=== PATIENT | female | born 1975 | race Caucasian/White ===

== ENCOUNTER 2017-01-25 11:42 | Emergency (ER) | payer OTHER ==
[2017-01-25] MEDS ORDERED: SODIUM CHLORIDE 0.9% 1,000 ML IV STA (12:14)
[2017-01-25 12:39] LABS: Anisocytosis Moderate; Basophils % (A) 0 %; CH 27.1; Eosinophils % (A) 0 %; HCT 44.7 % (34.0-46.0); HDW 2.58; HGB 13.8 gm/dL (11.4-16.0); Luc # (Auto) 0.11; Luc % (Auto) 1; Lymphocytes # (A) 1.5 k/uL (1.0-4.8); Lymphocytes % (A) 16 %; MCH 26.2 pg (25.0-35.0); MCHC 30.8 g/dL (31.0-37.0); Mean Platelet Volume 7.5; Monocytes # (A) 0.5 k/uL (0-1.0); Monocytes % (A) 5 %; Neutrophils # (A) 7.4 k/uL (1.3-7.7); Neutrophils % (A) 77 %; RBC 5.26 m/uL (3.80-5.40); RDW 20.5 % (11.5-15.5); WBC 9.5 k/uL (3.8-10.6); WBC (Perox) 9.78
[2017-01-25 12:51] LABS: ALT 26 U/L (9-52); AST 16 U/L (14-36); Alkaline Phosphatase 60 U/L (38-126); Amylase 57 U/L (30-110); Anion Gap 12 mmol/L; Blood Urea Nitrogen 9 mg/dL (7-17); Carbon Dioxide 26 mmol/L (22-30); Chloride 104 mmol/L (98-107); Glucose 85 mg/dL (74-99); Non-African American GFR(MDRD) >60 (>60 ml/min/1.73 sqM); Potassium 4.1 mmol/L (3.5-5.1); Sodium 142 mmol/L (137-145); Total Bilirubin 0.8 mg/dL (0.2-1.3); Total Protein 7.7 g/dL (6.3-8.2)
[2017-01-25 12:52] LABS: Appearance,Urine Cloudy (Clear); Bacteria,Urine Many /hpf; Bilirubin,Urine Negative (Negative); Glucose,Urine (UA) Negative (Negative); Ketones,Urine Negative (Negative); Leukocyte Esterase,Urine Large (Negative); Mucus,Urine Rare /hpf; Nitrite,Urine Positive (Negative); Particle Count 11025; Protein,Urine Trace (Negative); RBC,Urine 2 /hpf (0-5); Specific Gravity,Urine 1.006 (1.001-1.035); Squamous Epithelial Cell,Urine 1 /hpf (0-4); UA Billing (MACRO vs. MICRO) MICRO; Urobilinogen,Urine <2.0 mg/dL (<2.0); WBC,Urine 58 /hpf (0-5)
--- NOTE | 2017-01-25 13:10 | CT ---
EXAMINATION TYPE: CT abdomen pelvis wo con DATE OF EXAM: 01/25/2017 COMPARISON: Previous study dated 11/23/2012 HISTORY: Bilateral flank pain. CT DLP: 302.00 mGycm Automated exposure control for dose reduction was used. FINDINGS: Visualized portions of the lungs are clear. There is no pleural or pericardial fluid. The h eart is not enlarged. Within the abdomen, the liver, spleen and gallbladder are normal. Both adrenal glands are normal. There is no evidence of hydronephrosis or nephrolithiasis. Limited views of the pancreas are normal. There is no significant retroperitoneal, iliac or inguinal adenopathy. The bladder is unremarkable. Both ovaries are normal. There is no significant diverticular change and there is no radiographic evidence of diverticulitis. The appendix is normal. There is mucosal thickening involving the transverse colon. Much of the descending colon is collapsed making it difficult to assess colonic thickening. No free fluid and no free air is seen. There is mild hypertrophic spondylosis in the upper lumbar spine. No bony destructive lesion is seen. IMPRESSION: 1. THICKENING OF THE TRANSVERSE COLON AND PROBABLY THE DESCENDING COLON. PLEASE CORRELATE FOR COLITIS . 2. NORMAL APPENDIX. 3. NO EVIDENCE OF HYDRONEPHROSIS OR NEPHROLITHIASIS. 4. MILD DEGENERATIVE CHANGE WITHIN THE SPINE.
[2017-01-25] MEDS ORDERED: cefTRIAXone 2,000 MG in SODIUM CHLORIDE 0.9% 100 ML IVPB STA (13:11)
[2017-01-25] MEDS ORDERED: ONDANSETRON 4 MG/2 ML VIAL IVP STA (13:15)
[2017-01-25] MEDS ORDERED: HYDROmorphone 1 MG/ML 1 ML SYRINGE IVP STA (13:15)
--- NOTE | 2017-01-25 13:17 | ED ---
General Adult HPI - General Chief complaint: Abdominal Pain Stated complaint: BACK PAIN, POSS KIDNEY STONE Time Seen by Provider: 01/25/17 12:14 Source: patient, RN notes reviewed Mode of arrival: ambulatory Limitations: no limitations - History of Present Illness Initial comments: 41-year-old female presents emergency Department chief complaint of left flank pain with some nausea. Patient denies any high fevers. Patient does admit to history of kidney stones but states this feels different. Patient states the pain. The back of the chair can cause her some discomfort. Patient states that she was concerned due to her pain and discomfort so she thought that she should be evaluated. Patient denies any high fevers. Patient denies any blood in the urine that she is aware of. Patient was concerned due to her symptoms. Patient denies any recent fever, chills, shortness of breath, chest pain, vomiting, numbness or tingling, dysuria or hematuria, constipation or diarrhea, headaches or visual changes, or any other current symptoms. - Related Data Home Medications Medication Instructions Recorded Confirmed Hydrocodone/Acetaminophen 1 tab PO DIRECTED 12/09/13 12/09/13 [Hydrocodone/Acetaminophen 10-325] Previous Rx's Medication Instructions Recorded Docusate [Colace] 100 mg PO DAILY #5 capsule 12/09/13 Hydrocortisone [Anusol-Hc] 30 gm RC TID #10 cream..g. 12/09/13 Amoxicillin/Potassium Clav 1 tab PO Q12HR #20 tab 01/25/17 [Augmentin 875-125 Tablet] Allergies Allergy/AdvReac Type Severity Reaction Status Date / Time ciprofloxacin [From Cipro] AdvReac Unknown Verified 01/25/17 11:53 ciprofloxacin HCl AdvReac Unknown Verified 01/25/17 11:53 [From Cipro] doxycycline AdvReac Unknown Verified 01/25/17 11:53 ibuprofen AdvReac Unknown Verified 01/25/17 11:53 sulfamethoxazole AdvReac Unknown Verified 01/25/17 11:53 [From Septra] trimethoprim [From Septra] AdvReac Unknown Verified 01/25/17 11:53 Review of Systems ROS Statement: Those systems with pertinent positive or pertinent negative responses have been documented in the HPI. ROS Other: All systems not noted in ROS Statement are negative. Past Medical History Past Medical History: CVA/TIA Additional Past Medical History / Comment(s): kidney stones, anemia History of Any Multi-Drug Resistant Organisms: None Reported Past Surgical History: Section Additional Past Surgical History / Comment(s): D&C Past Psychological History: Anxiety Smoking Status: Never smoker Past Alcohol Use History: Rare Past Drug Use History: None Reported General Exam - General Exam Comments Initial Comments: General: The patient is awake and alert, in no distress, and does not appear acutely ill. Eye: Pupils are equal, round and reactive to light, extra-ocular movements are intact; there is normal conjunctiva bilaterally. No signs of icterus. Ears, nose, mouth and throat: There are moist mucous membranes and no oral lesions. Neck: The neck is supple, there is no tenderness or JVD. Cardiovascular: There is a regular rate and rhythm. No murmur, rub or gallop is appreciated. Respiratory: Lungs are clear to auscultation, respirations are non-labored, breath sounds are equal. No wheezes, stridor, rales, or rhonchi. Gastrointestinal: Soft, non-distended, non-tender abdomen without masses or organomegaly noted. There is no rebound or guarding present. right sided CVA tenderness. Bowel sounds are unremarkable. Back: There is no tenderness to palpation in the midline. There is no obvious deformity. No rashes noted. Musculoskeletal: Normal ROM, no tenderness, There is no pedal edema. There is no calf tenderness or swelling. Sensation intact. Pulses equal bilaterally 2+. Neurological: CN II-XII intact, There are no obvious motor or sensory deficits. Coordination appears grossly intact. Speech is normal. Skin: Skin is warm and dry and no rashes or lesions are noted. Psychiatric: Cooperative, appropriate mood & affect, normal judgment. Limitations: no limitations Course Vital Signs 01/25/17 11:51 Temperature 98.5 F Pulse Rate 90 Respiratory 20 Rate Blood Pressure 117/75 O2 Sat by Pulse 99 Oximetry Medical Decision Making - Medical Decision Making 41-year-old male presents to the emergency department with a chief complaint of what appears to be an acute pyelonephritis. This time there is no white count there is no fever patient has not vomited. This time we did give her 2g of Rocephin. We will start her on Augmentin for home. We discussed follow-up with her doctor. We did discuss return parameters all the questions. She stated that she understood and she is given plan. All questions have been answered. She will be discharged home. - Lab Data Result diagrams: 01/25/17 12:25 01/25/17 12:25 Lab Results 01/25/17 01/25/17 01/25/17 Range/Units 12:20 12:20 12:25 WBC (3.8-10.6) k/uL RBC (3.80-5.40) m/uL Hgb (11.4-16.0) gm/dL Hct (34.0-46.0) % MCV (80.0-100.0) fL MCH (25.0-35.0) pg MCHC (31.0-37.0) g/dL RDW (11.5-15.5) % Plt Count (150-450) k/uL Neutrophils % % Lymphocytes % % Monocytes % % Eosinophils % % Basophils % % Neutrophils # (1.3-7.7) k/uL Lymphocytes # (1.0-4.8) k/uL Monocytes # (0-1.0) k/uL Eosinophils # (0-0.7) k/uL Basophils # (0-0.2) k/uL Anisocytosis Sodium 142 (137-145) mmol/L Potassium 4.1 (3.5-5.1) mmol/L Chloride 104 (98-107) mmol/L Carbon Dioxide 26 (22-30) mmol/L Anion Gap 12 mmol/L BUN 9 (7-17) mg/dL Creatinine 0.73 (0.52-1.04) mg/dL Est GFR (MDRD) Af Amer >60 (>60 ml/min/1.73 sqM) Est GFR (MDRD) Non-Af >60 (>60 ml/min/1.73 sqM) Glucose 85 (74-99) mg/dL Calcium 10.0 (8.4-10.2) mg/dL Total Bilirubin 0.8 (0.2-1.3) mg/dL AST 16 (14-36) U/L ALT 26 (9-52) U/L Alkaline Phosphatase 60 (38-126) U/L Total Protein 7.7 (6.3-8.2) g/dL Albumin 4.6 (3.5-5.0) g/dL Amylase 57 (30-110) U/L Lipase 89 (23-300) U/L Urine Color Light Yellow Urine Appearance Cloudy H (Clear) Urine pH 6.0 (5.0-8.0) Ur Specific [place] 1.006 (1.001-1.035) Urine Protein Trace H (Negative) Urine Glucose (UA) Negative (Negative) Urine Ketones Negative (Negative) Urine Blood Small H (Negative) Urine Nitrite Positive H (Negative) Urine Bilirubin Negative (Negative) Urine Urobilinogen <2.0 (<2.0) mg/dL Ur Leukocyte Esterase Large H (Negative) Urine RBC 2 (0-5) /hpf Urine WBC 58 H (0-5) /hpf Urine WBC Clumps Many H (None) /hpf Ur Squamous Epith Cells 1 (0-4) /hpf Urine Bacteria Many H (None) /hpf Urine Mucus Rare H (None) /hpf Urine HCG, Qual Not Detected (Not Detectd) 01/25/17 Range/Units 12:25 WBC 9.5 (3.8-10.6) k/uL RBC 5.26 (3.80-5.40) m/uL Hgb 13.8 (11.4-16.0) gm/dL Hct 44.7 (34.0-46.0) % MCV 85.0 (80.0-100.0) fL MCH 26.2 (25.0-35.0) pg MCHC 30.8 L (31.0-37.0) g/dL RDW 20.5 H (11.5-15.5) % Plt Count 257 (150-450) k/uL Neutrophils % 77 % Lymphocytes % 16 % Monocytes % 5 % Eosinophils % 0 % Basophils % 0 % Neutrophils # 7.4 (1.3-7.7) k/uL Lymphocytes # 1.5 (1.0-4.8) k/uL Monocytes # 0.5 (0-1.0) k/uL Eosinophils # 0.0 (0-0.7) k/uL Basophils # 0.0 (0-0.2) k/uL Anisocytosis Moderate Sodium (137-145) mmol/L Potassium (3.5-5.1) mmol/L Chloride (98-107) mmol/L Carbon Dioxide (22-30) mmol/L Anion Gap mmol/L BUN (7-17) mg/dL Creatinine (0.52-1.04) mg/dL Est GFR (MDRD) Af Amer (>60 ml/min/1.73 sqM) Est GFR (MDRD) Non-Af (>60 ml/min/1.73 sqM) Glucose (74-99) mg/dL Calcium (8.4-10.2) mg/dL Total Bilirubin (0.2-1.3) mg/dL AST (14-36) U/L ALT (9-52) U/L Alkaline Phosphatase (38-126) U/L Total Protein (6.3-8.2) g/dL Albumin (3.5-5.0) g/dL Amylase (30-110) U/L Lipase (23-300) U/L Urine Color Urine Appearance (Clear) Urine pH (5.0-8.0) Ur Specific [place] (1.001-1.035) Urine Protein (Negative) Urine Glucose (UA) (Negative) Urine Ketones (Negative) Urine Blood (Negative) Urine Nitrite (Negative) Urine Bilirubin (Negative) Urine Urobilinogen (<2.0) mg/dL Ur Leukocyte Esterase (Negative) Urine RBC (0-5) /hpf Urine WBC (0-5) /hpf Urine WBC Clumps (None) /hpf Ur Squamous Epith Cells (0-4) /hpf Urine Bacteria (None) /hpf Urine Mucus (None) /hpf Urine HCG, Qual (Not Detectd) - Radiology Data Radiology results: report reviewed, image reviewed Disposition Clinical Impression: Acute pyelonephritis Disposition: HOME SELF-CARE Condition: Stable Instructions: Kidney Infection (ED) Additional Instructions: Please use medication as discussed. Please follow up with family doctor if symptoms have not improved over the next two days. Please return to the emergency room if your symptoms increase or worsen or for any other concerns. Prescriptions: Amoxicillin/Potassium Clav [Augmentin 875-125 Tablet] 1 tab PO Q12HR #20 tab Referrals: Toya Kay MD [Primary Care Provider] - 1-2 days Time of Disposition: 13:17
[2017-01-25 14:28] VITALS: BP 103/56; PULSE 71; RESP 18; TEMP 97.9
== END 2017-01-25 14:40 | disposition home or self-care (01) ==
LOC: EC 11:42
DX: N10 Acute pyelonephritis (principal); Z86.73 Personal history of transient ischemic attack (TIA), and cerebral infarction without residual deficits; Z79.891 Long term (current) use of opiate analgesic; Z79.899 Other long term (current) drug therapy; Z88.1 Allergy status to other antibiotic agents; Z88.2 Allergy status to sulfonamides; Z88.6 Allergy status to analgesic agent
CPT/HCPCS: 99284; 96365; 96375 ×2; 96361; 36415; 80053; 82150; 83690; 85025; 81001; 81025; 87086; 87077; 87186; 74176; J2405; J0696; J1170

== ENCOUNTER 2017-02-12 00:38 | Emergency (ER) | payer OTHER ==
[2017-02-12 00:42] VITALS: RESP 18
[2017-02-12 02:41] LABS: Anisocytosis Slight; Basophils # (A) 0.1 k/uL (0-0.2); Basophils % (A) 1 %; CH 28.6; CHCM 32.5; Eosinophils % (A) 1 %; HCT 45.3 % (34.0-46.0); HDW 2.63; Luc % (Auto) 1; Lymphocytes # (A) 2.3 k/uL (1.0-4.8); Lymphocytes % (A) 33 %; MCH 27.3 pg (25.0-35.0); Mean Platelet Volume 7.5; Monocytes # (A) 0.4 k/uL (0-1.0); Monocytes % (A) 6 %; Neutrophils % (A) 59 %; RBC 5.15 m/uL (3.80-5.40); RDW 19.5 % (11.5-15.5); WBC 6.9 k/uL (3.8-10.6); WBC (Perox) 6.96
--- NOTE | 2017-02-12 02:42 | XR ---
EXAMINATION TYPE: XR chest 2V DATE OF EXAM: 02/12/2017 COMPARISON: 11/23/2012 HISTORY: Chest pain TECHNIQUE: Frontal and lateral views of the chest are obtained. FINDINGS: Heart and mediastinum are normal. Lungs are clear of infiltrate. There is midthoracic dext roscoliosis. There is old left posterior rib fracture. IMPRESSION: No active cardiopulmonary disease. No change.
[2017-02-12 02:55] LABS: ALT 27 U/L (9-52); AST 17 U/L (14-36); Alkaline Phosphatase 60 U/L (38-126); Anion Gap 10 mmol/L; Blood Urea Nitrogen 9 mg/dL (7-17); Calcium 10.1 mg/dL (8.4-10.2); Carbon Dioxide 24 mmol/L (22-30); Chloride 107 mmol/L (98-107); Glucose 93 mg/dL (74-99); Non-African American GFR(MDRD) >60 (>60 ml/min/1.73 sqM); Potassium 4.3 mmol/L (3.5-5.1); Sodium 141 mmol/L (137-145); Total Bilirubin 0.3 mg/dL (0.2-1.3)
[2017-02-12 03:05] LABS: Creatine Kinase 38 U/L (30-135)
[2017-02-12 03:14] LABS: Prothrombin Time 10.5 sec (9.0-12.0)
[2017-02-12 03:16] LABS: Creatine Kinase MB <0.2 ng/mL (0.0-2.4); Troponin I <0.012 ng/mL (0.000-0.034)
[2017-02-12] MEDS ORDERED: RX INFO: IV CONTRAST WAS GIVEN 1 EACH MISC MISCELLANE PRN (03:30)
[2017-02-12] MEDS ORDERED: LORazepam 2 MG/ML INJ IV STA (03:33)
--- NOTE | 2017-02-12 05:17 | CT ---
EXAM: CT Angiography Chest With Intravenous Contrast CLINICAL HISTORY: Chest and left shoulder pain with elevated d-dimer TECHNIQUE: Axial computed tomographic angiography images of the chest with intravenous contrast using pulmonary embolism protocol. DLP is 241.00 mGy-cm. This CT exam was performed using one or more of the following dose reduction techniques: automated exposure control, adjustment of the mA and/or kV according to patient size, and/or use of iterative reconstruction technique. MIP reconstructed images were created and reviewed. COMPARISON: No relevant prior studies available. FINDINGS: Pulmonary arteries: Unremarkable. No pulmonary embolism. Aorta: No acute findings. No thoracic aortic aneurysm. Lungs: Unremarkable. No mass. No consolidation. Pleural space: Unremarkable. No significant effusion. No pneumothorax. Heart: Unremarkable. No cardiomegaly. No significant pericardial effusion. No evidence of RV dysfunction. Bones/joints: Chronic minimally displaced fractures involving the posterior mid left ribs. Mild dextroscoliosis of the thoracic spine. No dislocation. Soft tissues: Unremarkable. Lymph nodes: Unremarkable. No enlarged lymph nodes. IMPRESSION: No evidence of PE.
--- NOTE | 2017-02-12 05:19 | ED ---
General Adult HPI - General Chief complaint: Extremity Problem,Nontraumatic Stated complaint: Chest/Shoulder Pain Time Seen by Provider: 02/12/17 02:00 Source: patient, RN notes reviewed, old records reviewed Mode of arrival: ambulatory Limitations: no limitations - History of Present Illness Initial comments: 41-year-old female with past medical history chronic pain presents for evaluation of left anterior superior chest pain and left shoulder pain. Patient states this does radiate down her left arm. It is associated with shortness of breath. Patient denies any calf tenderness. She has had left lower extremity swelling which she was evaluated for in the past including ultrasound which was negative for DVT according to the patient. Patient has been ongoing for approximately one month. She does take [place] for pain, she states the pain would worsen proximally 1 hour after taking her [place], for this reason she has got taken any pain medication in the past 4 days. She is attempting to wean herself off of narcotics. She has no complaints of nausea or diaphoresis. Denies exertional chest pain. Denies fever, denies cough. - Related Data Home Medications Medication Instructions Recorded Confirmed Hydrocodone/Acetaminophen 1 tab PO DAILY PRN 12/09/13 01/25/17 [Hydrocodone/Acetaminophen 10-325] ALPRAZolam [Xanax] 0.25 mg PO DAILY PRN 01/25/17 01/25/17 Albuterol Inhaler [Ventolin Hfa 2 puff INHALATION RT-Q6H PRN 01/25/17 01/25/17 Inhaler] Ergocalciferol [Vitamin D2] 50,000 unit PO MO 01/25/17 01/25/17 Ferrous Sulfate [Feosol] 325 mg PO DAILY 01/25/17 01/25/17 Previous Rx's Medication Instructions Recorded Amoxicillin/Potassium Clav 1 tab PO Q12HR #20 tab 01/25/17 [Augmentin 875-125 Tablet] Allergies Allergy/AdvReac Type Severity Reaction Status Date / Time amoxicillin [From Augmentin] Allergy Unknown Verified 02/12/17 00:43 cephalexin [From Keflex] Allergy Unknown Verified 02/12/17 00:43 clavulanic acid Allergy Unknown Verified 02/12/17 00:43 [From Augmentin] ciprofloxacin [From Cipro] AdvReac Unknown Verified 01/25/17 14:06 ciprofloxacin HCl AdvReac Unknown Verified 01/25/17 14:06 [From Cipro] doxycycline AdvReac Unknown Verified 01/25/17 14:06 ibuprofen AdvReac Unknown Verified 01/25/17 14:06 sulfamethoxazole AdvReac Unknown Verified 01/25/17 14:06 [From Septra] trimethoprim [From Septra] AdvReac Unknown Verified 01/25/17 14:06 Review of Systems ROS Statement: Those systems with pertinent positive or pertinent negative responses have been documented in the HPI. ROS Other: All systems not noted in ROS Statement are negative. Past Medical History Past Medical History: CVA/TIA Additional Past Medical History / Comment(s): kidney stones, anemia History of Any Multi-Drug Resistant Organisms: None Reported Past Surgical History: Section Additional Past Surgical History / Comment(s): D&C Past Psychological History: Anxiety Smoking Status: Never smoker Past Alcohol Use History: Rare Past Drug Use History: None Reported General Exam Limitations: no limitations General appearance: alert, in no apparent distress Head exam: Present: atraumatic, normocephalic Eye exam: Present: normal appearance, PERRL ENT exam: Present: normal exam Neck exam: Present: normal inspection. Absent: tenderness Cardiovascular Exam: Present: regular rate, normal rhythm GI/Abdominal exam: Present: soft, distended. Absent: tenderness Extremities exam: Present: normal inspection, full ROM, normal capillary refill. Absent: pedal edema Back exam: Present: normal inspection, full ROM. Absent: tenderness Neurological exam: Present: alert, oriented X3, CN II-XII intact. Absent: motor sensory deficit Psychiatric exam: Present: normal affect, normal mood Skin exam: Present: warm, dry, intact. Absent: cyanosis, diaphoretic Course Vital Signs 02/12/17 02/12/17 02/12/17 00:39 02:47 03:39 Temperature 97.7 F Pulse Rate 74 81 84 Respiratory 18 18 18 Rate Blood Pressure 153/76 126/64 109/77 O2 Sat by Pulse 99 100 100 Oximetry 02/12/17 04:38 Temperature Pulse Rate 83 Respiratory 18 Rate Blood Pressure 130/75 O2 Sat by Pulse 100 Oximetry EKG Findings - EKG Comments: EKG Findings:: EKG shows normal sinus rhythm, ventricular rate 70, AL interval 152, QRS duration 112, QTC 453, there is a right bundle branch block, patient does have history of right bundle-branch block. Medical Decision Making - Medical Decision Making 41-year-old female presenting with a one month history of intermittent left anterior superior chest pain and left shoulder pain. Pain radiates down the left arm. Pain is described as not concerning for CAD, no nausea, no diaphoresis. Patient's has no specific risk factors for PE, however she has had some intermittent left lower extremity swelling. Laboratory studies including CBC, CMP, d-dimer, and troponin are obtained, d-dimer is elevated. CT angiography is obtained. EKG shows no ST segment elevation or depression, EKG is compared to previous from September 2015, no significant change. Chest x-ray shows no acute process. CT angiography is negative for pulmonary embolism, patient does have chronic left-sided rib fractures. This may explain her pain. Diagnosis: Chronic rib fractures - Lab Data Result diagrams: 02/12/17 02:18 02/12/17 02:18 Lab Results 02/12/17 02/12/17 02/12/17 Range/Units 02:18 02:18 02:18 WBC 6.9 (3.8-10.6) k/uL RBC 5.15 (3.80-5.40) m/uL Hgb 14.0 (11.4-16.0) gm/dL Hct 45.3 (34.0-46.0) % MCV 88.0 (80.0-100.0) fL MCH 27.3 (25.0-35.0) pg MCHC 31.0 (31.0-37.0) g/dL RDW 19.5 H (11.5-15.5) % Plt Count 243 (150-450) k/uL Neutrophils % 59 % Lymphocytes % 33 % Monocytes % 6 % Eosinophils % 1 % Basophils % 1 % Neutrophils # 4.0 (1.3-7.7) k/uL Lymphocytes # 2.3 (1.0-4.8) k/uL Monocytes # 0.4 (0-1.0) k/uL Eosinophils # 0.0 (0-0.7) k/uL Basophils # 0.1 (0-0.2) k/uL Anisocytosis Slight PT (9.0-12.0) sec INR (<1.2) APTT (22.0-30.0) sec D-Dimer (<0.60) mg/L FEU Sodium 141 (137-145) mmol/L Potassium 4.3 (3.5-5.1) mmol/L Chloride 107 (98-107) mmol/L Carbon Dioxide 24 (22-30) mmol/L Anion Gap 10 mmol/L BUN 9 (7-17) mg/dL Creatinine 0.70 (0.52-1.04) mg/dL Est GFR (MDRD) Af Amer >60 (>60 ml/min/1.73 sqM) Est GFR (MDRD) Non-Af >60 (>60 ml/min/1.73 sqM) Glucose 93 (74-99) mg/dL Calcium 10.1 (8.4-10.2) mg/dL Magnesium 2.0 (1.6-2.3) mg/dL Total Bilirubin 0.3 (0.2-1.3) mg/dL AST 17 (14-36) U/L ALT 27 (9-52) U/L Alkaline Phosphatase 60 (38-126) U/L Total Creatine Kinase 38 (30-135) U/L CK-MB (CK-2) <0.2 (0.0-2.4) ng/mL CK-MB (CK-2) Rel Index Troponin I <0.012 (0.000-0.034) ng/mL Total Protein 7.0 (6.3-8.2) g/dL Albumin 4.1 (3.5-5.0) g/dL 02/12/17 Range/Units 02:18 WBC (3.8-10.6) k/uL RBC (3.80-5.40) m/uL Hgb (11.4-16.0) gm/dL Hct (34.0-46.0) % MCV (80.0-100.0) fL MCH (25.0-35.0) pg MCHC (31.0-37.0) g/dL RDW (11.5-15.5) % Plt Count (150-450) k/uL Neutrophils % % Lymphocytes % % Monocytes % % Eosinophils % % Basophils % % Neutrophils # (1.3-7.7) k/uL Lymphocytes # (1.0-4.8) k/uL Monocytes # (0-1.0) k/uL Eosinophils # (0-0.7) k/uL Basophils # (0-0.2) k/uL Anisocytosis PT 10.5 (9.0-12.0) sec INR 1.0 (<1.2) APTT 24.0 (22.0-30.0) sec D-Dimer 0.81 H (<0.60) mg/L FEU Sodium (137-145) mmol/L Potassium (3.5-5.1) mmol/L Chloride (98-107) mmol/L Carbon Dioxide (22-30) mmol/L Anion Gap mmol/L BUN (7-17) mg/dL Creatinine (0.52-1.04) mg/dL Est GFR (MDRD) Af Amer (>60 ml/min/1.73 sqM) Est GFR (MDRD) Non-Af (>60 ml/min/1.73 sqM) Glucose (74-99) mg/dL Calcium (8.4-10.2) mg/dL Magnesium (1.6-2.3) mg/dL Total Bilirubin (0.2-1.3) mg/dL AST (14-36) U/L ALT (9-52) U/L Alkaline Phosphatase (38-126) U/L Total Creatine Kinase (30-135) U/L CK-MB (CK-2) (0.0-2.4) ng/mL CK-MB (CK-2) Rel Index Troponin I (0.000-0.034) ng/mL Total Protein (6.3-8.2) g/dL Albumin (3.5-5.0) g/dL Disposition Clinical Impression: Rib fractures Disposition: HOME SELF-CARE Condition: Good Instructions: Rib Fracture (ED) Referrals: Toya Kay MD [Primary Care Provider] - 1-2 days Time of Disposition: 05:22
[2017-02-12 05:44] VITALS: BP 112/59; PULSE 79; TEMP 98.8
== END 2017-02-12 05:37 | disposition home or self-care (01) ==
LOC: EC 00:38
DX: S22.42XA Multiple fractures of ribs, left side, initial encounter for closed fracture (principal); F41.9 Anxiety disorder, unspecified; Z86.73 Personal history of transient ischemic attack (TIA), and cerebral infarction without residual deficits; Z79.899 Other long term (current) drug therapy; Z88.0 Allergy status to penicillin; Z88.1 Allergy status to other antibiotic agents; Z88.2 Allergy status to sulfonamides; Z88.6 Allergy status to analgesic agent
CPT/HCPCS: 99284 ×2; 96374 ×2; 36415; 93005; 85379; 80053; 82550; 82553; 83735; 84484; 85025; 85610; 85730; 71020; 71275; J2060; Q9967

== ENCOUNTER 2017-07-20 17:24 | Observation (INO) | payer OTHER ==
[2017-07-20 18:40] LABS: ALT 21 U/L (9-52); AST 21 U/L (14-36); Albumin 4.7 g/dL (3.5-5.0); Alkaline Phosphatase 71 U/L (38-126); Anion Gap 13 mmol/L; Blood Urea Nitrogen 10 mg/dL (7-17); Calcium 10.2 mg/dL (8.4-10.2); Carbon Dioxide 26 mmol/L (22-30); Chloride 102 mmol/L (98-107); Glucose 86 mg/dL (74-99); Partial Thromboplastin Time 22.6 sec (22.0-30.0); Potassium 3.9 mmol/L (3.5-5.1); Prothrombin Time 10.1 sec (9.0-12.0); Sodium 141 mmol/L (137-145); Total Bilirubin 0.4 mg/dL (0.2-1.3); Total Protein 7.8 g/dL (6.3-8.2)
[2017-07-20 18:43] LABS: Basophils % (A) 1 %; Eosinophils % (A) 0 %; HCT 40.3 % (34.0-46.0); HGB 13.2 gm/dL (11.4-16.0); Lymphocytes # (A) 1.9 k/uL (1.0-4.8); Lymphocytes % (A) 29 %; MCH 27.1 pg (25.0-35.0); MCHC 32.8 g/dL (31.0-37.0); MCV 82.8 fL (80.0-100.0); Monocytes # (A) 0.4 k/uL (0-1.0); Monocytes % (A) 5 %; Neutrophils # (A) 4.2 k/uL (1.3-7.7); Neutrophils % (A) 64 %; Platelet Count 298 k/uL (150-450); RBC 4.86 m/uL (3.80-5.40); RDW 13.3 % (11.5-15.5); WBC 6.7 k/uL (3.8-10.6)
[2017-07-20 18:49] LABS: Creatine Kinase 45 U/L (30-135)
[2017-07-20 19:02] LABS: Creatine Kinase MB <0.2 ng/mL (0.0-2.4); Troponin I <0.012 ng/mL (0.000-0.034)
--- NOTE | 2017-07-20 19:19 | ED ---
General Adult HPI - General Chief complaint: Chest Pain Stated complaint: CHEST PAIN Time Seen by Provider: 07/20/17 18:55 Source: patient, RN notes reviewed Mode of arrival: ambulatory Limitations: no limitations - History of Present Illness Initial comments: 41-year-old female presents to the emergency department with a chief complaint of a centralized chest pain that radiated up into the left shoulder. She states this started yesterday. She states that she saw her doctor today. They sent her here because they were concerned. She states she has terrible shortness of breath with it. She does arrive denies uncomfortable feeling. It is not sharp and stabbing sometimes a deep breath will make it worse or position we'll change it. She denies any falls traumas or injuries with this. She states she did have a TIA when she was but she denies any other hypertension and diabetes. She denies any significant family health history. Her doctor was concerned and sent her here. They state that her EKG showed some abnormalities. The patient this time states she is still having the centralized chest chest pain. She states times and Prilosec did help with the shoulder pain. Patient denies any recent fever, chills, back pain, abdominal pain, nausea vomiting, numbness or tingling, dysuria or hematuria, constipation or diarrhea, headaches or visual changes, or any other current symptoms. - Related Data Home Medications Medication Instructions Recorded Confirmed Hydrocodone/Acetaminophen 1 tab PO QID PRN 12/09/13 07/20/17 [Hydrocodone/Acetaminophen 10-325] ALPRAZolam [Xanax] 0.25 mg PO DAILY PRN 01/25/17 07/20/17 Albuterol Inhaler [Ventolin Hfa 2 puff INHALATION RT-Q6H PRN 01/25/17 07/20/17 Inhaler] Ergocalciferol [Vitamin D2] 50,000 unit PO WE 01/25/17 07/20/17 Albuterol Nebulized [Ventolin 2.5 mg INHALATION RT-QID PRN 07/20/17 07/20/17 Nebulized] Cetirizine HCl [Zyrtec] 10 mg PO DAILY 07/20/17 07/20/17 Ranitidine HCl [Zantac] 150 mg PO DAILY 07/20/17 07/20/17 Allergies Allergy/AdvReac Type Severity Reaction Status Date / Time amoxicillin [From Augmentin] Allergy Unknown Verified 07/20/17 19:15 cephalexin [From Keflex] Allergy Unknown Verified 07/20/17 19:15 clavulanic acid Allergy Unknown Verified 07/20/17 19:15 [From Augmentin] ciprofloxacin [From Cipro] AdvReac Unknown Verified 07/20/17 19:15 ciprofloxacin HCl AdvReac Unknown Verified 07/20/17 19:15 [From Cipro] doxycycline AdvReac Unknown Verified 07/20/17 19:15 ibuprofen AdvReac Unknown Verified 07/20/17 19:15 sulfamethoxazole AdvReac Unknown Verified 07/20/17 19:15 [From Septra] trimethoprim [From Septra] AdvReac Unknown Verified 07/20/17 19:15 Review of Systems ROS Statement: Those systems with pertinent positive or pertinent negative responses have been documented in the HPI. ROS Other: All systems not noted in ROS Statement are negative. Past Medical History Past Medical History: CVA/TIA Additional Past Medical History / Comment(s): kidney stones, anemia History of Any Multi-Drug Resistant Organisms: None Reported Past Surgical History: Section Additional Past Surgical History / Comment(s): D&C Past Psychological History: Anxiety Smoking Status: Never smoker Past Alcohol Use History: Rare Past Drug Use History: None Reported General Exam - General Exam Comments Initial Comments: General: The patient is awake and alert, in no distress, and does not appear acutely ill. Eye: Pupils are equal, round and reactive to light, extra-ocular movements are intact; there is normal conjunctiva bilaterally. No signs of icterus. Ears, nose, mouth and throat: There are moist mucous membranes. Neck: The neck is supple, there is no tenderness. Cardiovascular: There is a regular rate and rhythm. No murmur, rub or gallop is appreciated. Respiratory: Lungs are clear to auscultation, respirations are non-labored, breath sounds are equal. No wheezes, stridor, rales, or rhonchi. Gastrointestinal: Soft, non-distended, non-tender abdomen without masses or organomegaly noted. There is no rebound or guarding present. No CVA tenderness. Bowel sounds are unremarkable. Back: There is no tenderness to palpation in the midline. There is no obvious deformity. No rashes noted. Musculoskeletal: Normal ROM, no tenderness, There is no pedal edema. There is no calf tenderness or swelling. Sensation intact. Pulses equal bilaterally 2+. Neurological: CN II-XII intact, There are no obvious motor or sensory deficits. Coordination appears grossly intact. Speech is normal. Skin: Skin is warm and dry and no rashes or lesions are noted. Psychiatric: Cooperative, appropriate mood & affect, normal judgment. Limitations: no limitations Course Vital Signs 07/20/17 07/20/17 18:17 20:18 Temperature 98.2 F Pulse Rate 83 78 Respiratory 18 16 Rate Blood Pressure 132/75 151/65 O2 Sat by Pulse 98 100 Oximetry EKG Findings - EKG Comments: EKG Findings:: normal sinus rhythm right bundle branch block, ventricular rate 68 bpm, normal axis, no atopy, no S-T depressions or elevations, compared to EKG from 02/12/2017 Medical Decision Making - Medical Decision Making 41-year-old female presents for centralized chest pain. At this time we did inform the patient about her aortic aneurysm and the importance follow up on this. PE studies are reviewed. She was sent in by family care doctor for cardiac rule out. At this time EKG does not show any acute changes compared to previous however we will admit her for continued cardiac monitoring. Patient is in agreement this plan all questions have been answered. Patient will be admitted at this time. - Lab Data Result diagrams: 07/20/17 18:06 07/20/17 18:06 Lab Results 07/20/17 07/20/17 07/20/17 Range/Units 18:06 18:06 18:06 WBC 6.7 (3.8-10.6) k/uL RBC 4.86 (3.80-5.40) m/uL Hgb 13.2 (11.4-16.0) gm/dL Hct 40.3 (34.0-46.0) % MCV 82.8 (80.0-100.0) fL MCH 27.1 (25.0-35.0) pg MCHC 32.8 (31.0-37.0) g/dL RDW 13.3 (11.5-15.5) % Plt Count 298 (150-450) k/uL Neutrophils % 64 % Lymphocytes % 29 % Monocytes % 5 % Eosinophils % 0 % Basophils % 1 % Neutrophils # 4.2 (1.3-7.7) k/uL Lymphocytes # 1.9 (1.0-4.8) k/uL Monocytes # 0.4 (0-1.0) k/uL Eosinophils # 0.0 (0-0.7) k/uL Basophils # 0.0 (0-0.2) k/uL PT (9.0-12.0) sec INR (<1.2) APTT (22.0-30.0) sec D-Dimer (<0.60) mg/L FEU Sodium 141 (137-145) mmol/L Potassium 3.9 (3.5-5.1) mmol/L Chloride 102 (98-107) mmol/L Carbon Dioxide 26 (22-30) mmol/L Anion Gap 13 mmol/L BUN 10 (7-17) mg/dL Creatinine 0.68 (0.52-1.04) mg/dL Est GFR (CKD-EPI)AfAm >90 (>60 ml/min/1.73 sqM) Est GFR (CKD-EPI)NonAf >90 (>60 ml/min/1.73 sqM) Glucose 86 (74-99) mg/dL Calcium 10.2 (8.4-10.2) mg/dL Total Bilirubin 0.4 (0.2-1.3) mg/dL AST 21 (14-36) U/L ALT 21 (9-52) U/L Alkaline Phosphatase 71 (38-126) U/L Total Creatine Kinase 45 (30-135) U/L CK-MB (CK-2) <0.2 (0.0-2.4) ng/mL CK-MB (CK-2) Rel Index Troponin I <0.012 (0.000-0.034) ng/mL Total Protein 7.8 (6.3-8.2) g/dL Albumin 4.7 (3.5-5.0) g/dL 07/20/17 07/20/17 Range/Units 18:06 18:06 WBC (3.8-10.6) k/uL RBC (3.80-5.40) m/uL Hgb (11.4-16.0) gm/dL Hct (34.0-46.0) % MCV (80.0-100.0) fL MCH (25.0-35.0) pg MCHC (31.0-37.0) g/dL RDW (11.5-15.5) % Plt Count (150-450) k/uL Neutrophils % % Lymphocytes % % Monocytes % % Eosinophils % % Basophils % % Neutrophils # (1.3-7.7) k/uL Lymphocytes # (1.0-4.8) k/uL Monocytes # (0-1.0) k/uL Eosinophils # (0-0.7) k/uL Basophils # (0-0.2) k/uL PT 10.1 (9.0-12.0) sec INR 1.0 (<1.2) APTT 22.6 (22.0-30.0) sec D-Dimer 0.69 H (<0.60) mg/L FEU Sodium (137-145) mmol/L Potassium (3.5-5.1) mmol/L Chloride (98-107) mmol/L Carbon Dioxide (22-30) mmol/L Anion Gap mmol/L BUN (7-17) mg/dL Creatinine (0.52-1.04) mg/dL Est GFR (CKD-EPI)AfAm (>60 ml/min/1.73 sqM) Est GFR (CKD-EPI)NonAf (>60 ml/min/1.73 sqM) Glucose (74-99) mg/dL Calcium (8.4-10.2) mg/dL Total Bilirubin (0.2-1.3) mg/dL AST (14-36) U/L ALT (9-52) U/L Alkaline Phosphatase (38-126) U/L Total Creatine Kinase (30-135) U/L CK-MB (CK-2) (0.0-2.4) ng/mL CK-MB (CK-2) Rel Index Troponin I (0.000-0.034) ng/mL Total Protein (6.3-8.2) g/dL Albumin (3.5-5.0) g/dL - Radiology Data Radiology results: report reviewed, image reviewed Disposition Clinical Impression: Unstable angina Disposition: ADMITTED IP TO THIS [facility] Condition: Stable Referrals: Toya Kay MD [Primary Care Provider] - 1-2 days Decision Date: 07/20/17 Decision Time: 21:13
[2017-07-20] MEDS ORDERED: RX INFO: IV CONTRAST WAS GIVEN 1 EACH MISC MISCELLANE PRN (19:23)
[2017-07-20] MEDS ORDERED: SODIUM CHLORIDE 0.9% 1,000 ML IV STA (19:23)
--- NOTE | 2017-07-20 20:26 | CT ---
EXAMINATION TYPE: CT angio chest DATE OF EXAM: 07/20/2017 8:07 PM COMPARISON: 02/12/2017 HISTORY: Chest pain CT DLP: 620 mGycm Automated exposure control for dose reduction was used. CONTRAST: CTA scan of the thorax is performed with IV Contrast, patient injected with 100ml mL of Omnipaque 350 , pulmonary embolism protocol. There are 3-D post processed images.. FINDINGS: The lungs are clear of consolidation. There is no evidence of a pulmonary mass. There is no pleural e ffusion. There is no pericardial effusion. I see no filling defects in the pulmonary arteries. There are no hilar masses. There is mild the bony thorax appears intact. Aneurysm of the ascending aorta. Aorta measures up to 4 cm. There is no evide nce of dissection. IMPRESSION: NO EVIDENCE OF PULMONARY EMBOLISM. MILD ANEURYSM OF ASCENDING AORTA WITHOUT CHANGE COMPARED TO OLD EX AM.
[2017-07-20] MEDS ORDERED: ASPIRIN 325 MG TAB PO STA (20:32)
[2017-07-20] MEDS ORDERED: ACETAMINOPHEN TAB 500 MG TAB PO STA (21:07)
[2017-07-20] MEDS ORDERED: NITROGLYCERIN SL TABS 0.4 MG TAB SUBLINGUAL PRN (21:13)
[2017-07-20] MEDS ORDERED: HYDROcodone/APAP 10-325MG 1 EACH TAB PO PRN (21:15)
[2017-07-20] MEDS ORDERED: ALPRAZolam 0.25 MG TAB PO PRN (21:15)
[2017-07-20] MEDS ORDERED: ALBUTEROL INHALER 60 PUFF/8 GM INHALER INHALATION PRN (21:15)
[2017-07-20] MEDS ORDERED: ALBUTEROL NEBULIZED 2.5 MG/3 ML INHALATION PRN (21:15)
[2017-07-20 22:06] VITALS: BMI 22.8
[2017-07-20] MEDS ORDERED: traMADol 50 MG TAB PO STA (22:50)
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
[2017-07-20] MEDS: SODIUM CHLORIDE 0.9% 1,000 ML IV SCH (23:06)
[2017-07-21 00:59] LABS: Creatine Kinase 40 U/L (30-135)
[2017-07-21 01:13] LABS: Creatine Kinase MB <0.2 ng/mL (0.0-2.4); Troponin I <0.012 ng/mL (0.000-0.034)
[2017-07-21] MEDS: SODIUM CHLORIDE 0.9% 1,000 ML IV SCH (03:30)
[2017-07-21 07:44] LABS: Cholesterol 173 mg/dL (<200); HDL Cholesterol 58 mg/dL (40-60); LDL Cholesterol,Calculated 105 mg/dL (0-99); Triglycerides 51 mg/dL (<150)
[2017-07-21 07:59] LABS: Creatine Kinase 34 U/L (30-135)
[2017-07-21 08:12] LABS: Creatine Kinase MB <0.2 ng/mL (0.0-2.4); Troponin I <0.012 ng/mL (0.000-0.034)
[2017-07-21] MEDS ORDERED: LORATADINE 10 MG TAB PO SCH (09:00)
[2017-07-21] MEDS ORDERED: FAMOTIDINE 20 MG TAB PO SCH (09:00)
[2017-07-21] MEDS ORDERED: ASPIRIN 325 MG TAB PO SCH (09:00)
--- NOTE | 2017-07-21 11:07 | P.PN ---
Subjective Progress Note Date: 07/21/17 Principal diagnosis: Patient seen and examined in follow-up of chest pain Patient seen and examined today, denies any ongoing chest pain, denies any trouble breathing denies any fevers or chills. She voiced concerns regarding new findings of aortic root dilatation and is waiting for cardiology for further discussion. She is also eager to go home today possible Objective - Vital Signs Vital signs: Vital Signs Temp 98.5 F 07/21/17 07:38 Pulse 74 07/21/17 07:38 Resp 16 07/21/17 07:38 BP 111/64 07/21/17 07:38 Pulse Ox 99 07/21/17 07:38 Intake & Output 07/20/17 07/21/17 07/21/17 18:59 06:59 18:59 Intake Total 350 Balance 350 Weight 70.76 kg 71.4 kg Intake: Oral 350 Other: Voiding Method Toilet Toilet # Voids 2 - Exam Constitutional: vital signs stable, Not in acute distress, pleasant, conversant Lungs: Clear to auscultation bilaterally, clear to percussion, normal respiratory effort no use of accessory muscles Cardiovascular: Regular rate and rhythm, no murmurs, no gallops, no rubs, no peripheral edema Gastrointestinal: Soft, no tenderness to palpation, no palpable hepatosplenomegally, bowel sounds positive Extremities: No digital cyanosis or clubbing, peripheral pulses palpable and equal over bilateral radial arteries and dorsalis pedis artery, no calf muscle tenderness Psych: Alert, oriented to place, person and time, appropriate affect, intact judgment - Labs CBC & Chem 7: 07/20/17 18:06 07/20/17 18:06 Labs: Abnormal Lab Results - Last 24 Hours (Table) 07/20/17 07/21/17 Range/Units 18:06 06:50 D-Dimer 0.69 H (<0.60) mg/L FEU LDL Cholesterol, Calc 105 H (0-99) mg/dL Assessment and Plan Assessment: 41-year-old female with history of anxiety who presented complaining of chest pain started in the evening 2 hours after eating dinner while sitting and relaxing doing nothing. Pain continued until she received some pain medications in the emergency department when it was resolved. Pain was mainly left-sided achy bowel radiating to the left shoulder worse while laying flat or taking deep breaths. Home she thought it's related to stress to 2 Xanax without benefit , then thought maybe due to the spicy food she had text, medications was slight improvement. And due to persistence of some pain she went to her primary care doctor who did an EKG and then recommended to her to go to the hospital for further evaluation ., EKG showed no acute changes, cardiac enzymes were negative. Patient had slightly elevated d-dimer angiogram the chest was performed showed no acute pulmonary embolism but did suggest 4 cm ascending aortic aneurysm which was unchanged again from findings back in February last 2016. Patient was admitted for further evaluation, echocardiogram, and cardiology input. (1) Chest pain Narrative/Plan: This has resolved Cardiac enzymes negative EKG showed no acute changes Current Visit: Yes Status: Acute Priority: High Code(s): R07.9 - CHEST PAIN, UNSPECIFIED SNOMED Code(s): 94351502 (2) Anxiety Narrative/Plan: Continues with Xanax when necessary Current Visit: Yes Status: Acute Code(s): F41.9 - ANXIETY DISORDER, UNSPECIFIED SNOMED Code(s): 08702110 (3) Aortic aneurysm Narrative/Plan: Stable compared to CT of the chest from February 2017 Recommending outpatient monitoring and follow-up with primary care and cardiology Current Visit: Yes Status: Acute Priority: High Code(s): I71.9 - AORTIC ANEURYSM OF UNSPECIFIED SITE, WITHOUT RUPTURE SNOMED Code(s): 55180328 (4) Right bundle branch block (RBBB) Narrative/Plan: Unchanged from before Await cardiology input Current Visit: Yes Status: Chronic Priority: Medium Code(s): I45.10 - UNSPECIFIED RIGHT BUNDLE-BRANCH BLOCK SNOMED Code(s): 62480700 (5) DVT prophylaxis Narrative/Plan: Patient is low risk Continue with SCDs Current Visit: Yes Status: Acute Code(s): JLS6666 - SNOMED Code(s): 776069555 Plan: Await further cardiology evaluation Await results of 2-D echo Pain resolved Possible discharge today if cleared by cardiology
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
--- NOTE | 2017-07-21 12:02 | ECHOF ---
Referral Reason:CP, aortic aneurysm, murmur, evaluate for ASD MEASUREMENTS -------- HEIGHT: 177.8 cm WEIGHT: 71.2 kg BP: 107/62 RVIDd: 2.1 cm (< 3.3) IVSd: 1.0 cm (0.6 - 1.1) LVIDd: 5.3 cm (3.9 - 5.3) LVPWd: 0.8 cm (0.6 - 1.1) IVSs: 1.3 cm LVIDs: 3.7 cm LVPWs: 1.4 cm LA Diam: 3.5 cm (2.7 - 3.8) LAESV Index (A-L): 16.94 ml/m Ao Diam: 3.1 cm (2.0 - 3.7) AV Cusp: 2.2 cm (1.5 - 2.6) MV EXCURSION: 22.842 mm (> 18.000) MV EF SLOPE: 112 mm/s (70 - 150) EPSS: 0.8 cm MV E Jose: 0.98 m/s MV DecT: 244 ms MV A Jose: 0.75 m/s MV E/A Ratio: 1.30 FINDINGS -------- Sinus rhythm. This was a technically adequate study. The left ventricular size is normal. Left ventricular wall thickness is normal. Overall left vent ricular systolic function is normal with, an EF between 55 - 60 %. The right ventricle is normal in size. Normal LA size by volume 22+/-6 ml/m2. The right atrium is normal in size. The aortic valve is trileaflet and appears structurally normal. The mitral valve is normal. The tricuspid valve appears structurally normal. The pulmonic valve was not well visualized. The aortic root size is normal. Normal inferior vena cava with normal inspiratory collapse consistent with estimated right atrial pre ssure of 5 mmHg. The inferior vena cava is mildly dilated. There is no pericardial effusion. CONCLUSIONS -------- 1. Sinus rhythm. 2. This was a technically adequate study. 3. The left ventricular size is normal. 4. Left ventricular wall thickness is normal. 5. Overall left ventricular systolic function is normal with, an EF between 55 - 60 %. 6. The right ventricle is normal in size. 7. Normal LA size by volume 22+/-6 ml/m2. 8. The right atrium is normal in size. 9. The aortic valve is trileaflet and appears structurally normal. 10. The mitral valve is normal. 11. The tricuspid valve appears structurally normal. 12. The pulmonic valve was not well visualized. 13. The aortic root size is normal. 14. Normal inferior vena cava with normal inspiratory collapse consistent with estimated right atrial pressure of 5 mmHg. 15. The inferior vena cava is mildly dilated. 16. There is no pericardial effusion. ADVANCED CLINICAL SPECIALIST: Marsha Sneed RDCS
[2017-07-21 12:26] VITALS: BP 115/66; PULSE 84; RESP 18; TEMP 98.2
[2017-07-21] MEDS ORDERED: METOPROLOL TARTRATE 12.5 MG TAB PO SCH (12:45)
--- NOTE | 2017-07-21 13:35 | ECHOS ---
- Stress Test Note Stress Test Results/Findings: Exam Performed: stress echo exercise Exam Date: 07/21/17 Reason for Exam: cp Height: 5 ft 10 in Weight: 71.4 kg Protocol: yasmin Stage: 3 Duration of Exercise: 8 min Resting Heart Rate: 89 Resting Blood Pressure: 128/68 Maximum Achieved Heart Rate: 163 Maximum Achieved Blood Pressure: 170/68 85% PMHR: 153 100% PMHR: 180 METS: 9.1 Technologist Comment: Stress Test Results/Findings: This is a 41-year-old female was admitted to the hospital with recurrent chest pains. Cardiac enzymes and EKGs were negative. Based on EKG showed sinus rhythm with normal WI interval and evidence of incomplete), punch block pattern. Blood pressure at rest is 128/68 with pulse rate of 89. Patient walked on the Yasmin protocol for 8 minutes achieving a maximum heart rate of 163 with blood pressure 146/69. EKGs taken during and after exercise did not reveal any significant changes to sized ischemia. Patient had frequent disease in the form of bigeminal pattern in the post exercise period. Echo data: Baseline echo images showed normal wall motion and thickening except atypical motion of the septum. Exercise echo images showed augmentation of wall motion and thickening, but continued to show atypical motion of the anterior septum. Patient did not express any chest pain. Patient was symptomatic from the PVCs. Final impression: #1. Negative stress test #2. Probably normal stress echo with some atypical motion of the septum #3. Patient had symptomatic PVCs during post exercise period. [facility]
--- NOTE | 2017-07-21 16:21 | P.DS ---
Providers Date of admission: 07/20/17 21:16 Attending physician: Marilu Ahuja DO Consults: 07/20/17 21:13 Consult Physician Urgent Consulting Provider: Génesis Sue Consult Reason/Comments: UA Do you want consulting provider notified?: Yes Primary care physician: [facility] Course: Diagnosis at discharge # symptomatic PVCs during post exercise period. #. Anxiety #. Stable ascending aortic aneurysm 41-year-old female with history of anxiety who presented complaining of chest pain started in the evening 2 hours after eating dinner while sitting and relaxing doing nothing. Pain continued until she received some pain medications in the emergency department when it was resolved. Pain was mainly left-sided achy bowel radiating to the left shoulder worse while laying flat or taking deep breaths. Home she thought it's related to stress to 2 Xanax without benefit , then thought maybe due to the spicy food she had text, medications was slight improvement. And due to persistence of some pain she went to her primary care doctor who did an EKG and then recommended to her to go to the hospital for further evaluation ., EKG showed no acute changes, cardiac enzymes were negative. Patient had slightly elevated d-dimer angiogram the chest was performed showed no acute pulmonary embolism but did suggest 4 cm ascending aortic aneurysm which was unchanged again from findings back in February last year 2016. Patient was admitted for further evaluation, echocardiogram, and cardiology input. Patient seen and examined today, denies any ongoing chest pain, denies any trouble breathing denies any fevers or chills. She voiced concerns regarding new findings of aortic root dilatation and is waiting for cardiology for further discussion. She is also eager to go home today possible Constitutional: vital signs stable, Not in acute distress, pleasant, conversant Lungs: Clear to auscultation bilaterally, clear to percussion, normal respiratory effort no use of accessory muscles Cardiovascular: Regular rate and rhythm, no murmurs, no gallops, no rubs, no peripheral edema Gastrointestinal: Soft, no tenderness to palpation, no palpable hepatosplenomegally, bowel sounds positive Extremities: No digital cyanosis or clubbing, peripheral pulses palpable and equal over bilateral radial arteries and dorsalis pedis artery, no calf muscle tenderness Psych: Alert, oriented to place, person and time, appropriate affect, intact judgment patient had a stress test which showed : #1. Negative stress test #2. Probably normal stress echo with some atypical motion of the septum #3. Patient had symptomatic PVCs during post exercise period.for which cardiology performing holter monitor for 24 hours, started the patient on metoprolol low dose, and to follow up with cardiology OP. stable ascending aortic aneurysm compared to CT from last year, continue OP follow up patient will be discharged in stable clinical condition 40 minutes were spent discharging this patient, and more than 50% of the time was spent in counseling the patient and family and in coordinating care. Pertinent Studies: 2D echo cardiogram , LVEF 55-60%, normal aortic root stress test , Final impression: #1. Negative stress test #2. Probably normal stress echo with some atypical motion of the septum #3. Patient had symptomatic PVCs during post exercise period. Patient Condition at Discharge: Stable Plan - Discharge Summary Discharge Rx Participant: No New Discharge Prescriptions: New Metoprolol Tartrate [Lopressor] 12.5 mg PO BID #60 tab Omeprazole [PriLOSEC] 20 mg PO AC-BRKFST #30 cap Continue Hydrocodone/Acetaminophen [Hydrocodone/Acetaminophen 10-325] 1 tab PO QID PRN PRN Reason: Pain Ergocalciferol [Vitamin D2 (DRISDOL)] 50,000 unit PO WE ALPRAZolam [Xanax] 0.25 mg PO DAILY PRN PRN Reason: Anxiety Cetirizine HCl [Zyrtec] 10 mg PO DAILY Albuterol Inhaler [Ventolin Hfa Inhaler] 2 puff INHALATION RT-Q6H PRN #60 puff PRN Reason: Shortness Of Breath Albuterol Nebulized [Ventolin Nebulized] 2.5 mg INHALATION RT-QID PRN #10 nebu PRN Reason: Shortness Of Breath Discontinued Ranitidine HCl [Zantac] 150 mg PO DAILY Discharge Medication List Hydrocodone/Acetaminophen [Hydrocodone/Acetaminophen 10-325] 1 tab PO QID PRN [History] ALPRAZolam [Xanax] 0.25 mg PO DAILY PRN 01/25/17 [History] Ergocalciferol [Vitamin D2 (DRISDOL)] 50,000 unit PO WE 01/25/17 [History] Cetirizine HCl [Zyrtec] 10 mg PO DAILY 07/20/17 [History] Albuterol Inhaler [Ventolin Hfa Inhaler] 2 puff INHALATION RT-Q6H PRN #60 puff 07/21/17 [Rx] Albuterol Nebulized [Ventolin Nebulized] 2.5 mg INHALATION RT-QID PRN #10 nebu 07/21/17 [Rx] Metoprolol Tartrate [Lopressor] 12.5 mg PO BID #60 tab 07/21/17 [Rx] Omeprazole [PriLOSEC] 20 mg PO AC-BRKFST #30 cap 07/21/17 [Rx] Follow up Appointment(s)/Referral(s): Monty Apple MD [STAFF PHYSICIAN] - 1 Week Toya Kay MD [Primary Care Provider] - 1 Week Patient Instructions/Handouts: Chest Pain (GEN) Activity/Diet/Wound Care/Special Instructions: 24 hour holter monitor Discharge Disposition: HOME SELF-CARE
[2017-07-22] MEDS ORDERED: ERGOCALCIFEROL 50,000 UNIT CAP PO SCH (12:00)
--- NOTE | 2017-07-27 22:16 | HM ---
HOLTER MONITOR REPORT Patient in her diary had episodes of shortness of breath, but no palpitations, syncope or near-syncope was reported. Predominant rhythm appears to be sinus with a heart rate ranging from 37 to 140 beats per minute with an average heart rate of 71 beats per minute. Sinus rhythm and sinus tachycardia were the most predominant features. There was no evidence of any significant pauses. Whenever she complained of some shortness of breath, there was no specific correlation with any arrhythmia. Isolated ventricular ectopic beats were seen infrequently. There was no evidence of any supraventricular arrhythmia. There was no evidence of any significant bradyarrhythmia. Average heart rate was 71 beats per minute. FINAL IMPRESSION: Unremarkable 24-hour DCG with an average heart rate of 71 beats per minute and predominant rhythm is sinus with sinus tachycardia. There was no evidence of any specific arrhythmia when patient complained of some shortness of breath. When she felt her heart rate was fast, she was at a rate of 107 beats per minute on one occasion. This is an unremarkable 24-hour DCG recording. MMODL / IJN: [id number] /
== END 2017-07-21 16:40 | disposition home or self-care (01) ==
LOC: EC 17:24 → 3OBS 21:16
PROVIDERS: ADMIT Internal Medicine; ATTEND Internal Medicine
DX: R07.89 Other chest pain (principal); I45.10 Unspecified right bundle-branch block; R79.89 Other specified abnormal findings of blood chemistry; F41.9 Anxiety disorder, unspecified; I71.2 Thoracic aortic aneurysm, without rupture; I49.3 Ventricular premature depolarization; R06.02 Shortness of breath; D64.9 Anemia, unspecified; F41.0 Panic disorder [episodic paroxysmal anxiety]; Z86.73 Personal history of transient ischemic attack (TIA), and cerebral infarction without residual deficits; Z79.899 Other long term (current) drug therapy; Z88.6 Allergy status to analgesic agent; Z88.1 Allergy status to other antibiotic agents; Z88.2 Allergy status to sulfonamides; Z87.442 Personal history of urinary calculi; Z83.3 Family history of diabetes mellitus; Z82.49 Family history of ischemic heart disease and other diseases of the circulatory system
CPT/HCPCS: 99285; 96360 ×2; 96361 ×2; 36415; 93005; 93017; 93225; 93226; 93306; 93350; 85379; 80061; 80053; 85652; 82550 ×2; 82553 ×2; 84484 ×2; 85025; 85610; 85730; 71275; G0378 ×2; Q9967

== ENCOUNTER 2018-08-18 21:37 | Emergency (ER) | payer OTHER ==
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
[2018-08-18 22:42] LABS: Anisocytosis Slight; Basophils % (A) 0 %; Eosinophils # (A) 0.1 k/uL (0-0.7); Eosinophils % (A) 1 %; HCT 41.8 % (34.0-46.0); HGB 13.8 gm/dL (11.4-16.0); Lymphocytes # (A) 3.2 k/uL (1.0-4.8); Lymphocytes % (A) 37 %; MCH 28.1 pg (25.0-35.0); Mean Platelet Volume 7.4; Monocytes # (A) 0.5 k/uL (0-1.0); Monocytes % (A) 6 %; Neutrophils # (A) 4.9 k/uL (1.3-7.7); Neutrophils % (A) 55 %; Platelet Count 314 k/uL (150-450); RBC 4.92 m/uL (3.80-5.40); RDW 16.6 % (11.5-15.5); WBC 8.8 k/uL (3.8-10.6)
[2018-08-18] MEDS ORDERED: diphenhydrAMINE 50 MG/ML 1 ML VIAL IVP ONE (22:46)
[2018-08-18] MEDS ORDERED: methylPREDNISolone SOD SUCCI 125 MG/2 ML VIAL IV ONE (22:46)
[2018-08-18] MEDS ORDERED: FAMOTIDINE 20 MG/2 ML VIAL IV ONE (22:46)
[2018-08-18 22:50] LABS: ALT 25 U/L (9-52); AST 20 U/L (14-36); Albumin 4.5 g/dL (3.5-5.0); Alkaline Phosphatase 71 U/L (38-126); Anion Gap 10 mmol/L; Blood Urea Nitrogen 9 mg/dL (7-17); Calcium 10.2 mg/dL (8.4-10.2); Carbon Dioxide 23 mmol/L (22-30); Chloride 108 mmol/L (98-107); Creatine Kinase 55 U/L (30-135); Glucose 122 mg/dL (74-99); Potassium 3.9 mmol/L (3.5-5.1); Sodium 141 mmol/L (137-145); Total Bilirubin 0.4 mg/dL (0.2-1.3); Total Protein 7.6 g/dL (6.3-8.2)
[2018-08-18 23:03] LABS: INR 0.9 (<1.2); Partial Thromboplastin Time 23.1 sec (22.0-30.0); Prothrombin Time 10.2 sec (9.0-12.0)
[2018-08-18 23:07] LABS: D-Dimer 0.76 mg/L FEU (<0.60)
--- NOTE | 2018-08-18 23:09 | XR ---
EXAM: XR Chest, 2 Views CLINICAL HISTORY: Reason: Chest Pain TECHNIQUE: Frontal and lateral views of the chest. COMPARISON: Chest x-ray 02/12/2017 FINDINGS: Lungs: Lungs are clear of focal infiltrates or consolidations. Pleural space: No evidence of pleural effusion or pneumothorax. Heart: Heart size is within normal limits. Mediastinum: Mediastinal structures are unremarkable. Bones/joints: Mild thoracic scoliosis, convex to the right. No significant change as compared to chest x-ray 02/12/2017. IMPRESSION: No evidence of acute cardiopulmonary disease.
[2018-08-18 23:10] LABS: Creatine Kinase MB <0.2 ng/mL (0.0-2.4); Troponin I <0.012 ng/mL (0.000-0.034)
--- NOTE | 2018-08-19 00:40 | CT ---
EXAM: CT Angiography Chest With Intravenous Contrast CLINICAL HISTORY: Reason: History as sending aortic aneurysm, rule out PE TECHNIQUE: Axial computed tomographic angiography images of the chest with intravenous contrast using pulmonary embolism protocol. CTDI is 12.8 mGy and DLP is 358.5 mGy-cm. This CT exam was performed using one or more of the following dose reduction techniques: automated exposure control, adjustment of the mA and/or kV according to patient size, and/or use of iterative reconstruction technique. MIP reconstructed images were created and reviewed. COMPARISON: Chest x-ray 08/18/2018. CTA chest 07/20/2017. FINDINGS: Technically limited due to motion artifact and suboptimal pulmonary arterial opacification limiting evaluation for pulmonary embolic disease. Pulmonary arteries: No evidence of central pulmonary embolism. More peripheral pulmonary embolic disease cannot be excluded. Aorta: Mild ectasia of ascending thoracic aorta measuring 3.8 cm in maximum AP diameter, unchanged since 07/20/2017. No evidence of thoracic aortic dissection. Lungs: Mild bilateral dependent atelectasis. No evidence of acute pulmonary parenchymal disease or consolidation. Pleural space: No evidence of pleural effusion or pneumothorax. Heart: No significant cardiomegaly or pericardial effusion. Bones/joints: Mild thoracic scoliosis, convex to the right. Lymph nodes: No evidence of lymphadenopathy. IMPRESSION: No evidence of central pulmonary embolism. Stable mild ectasia of ascending thoracic aorta measuring 3.8 cm in maximum AP diameter. No evidence of thoracic aortic dissection. <MYCVCSECTION> [employer] 08/19/18 00:44 Verify Receipt Verified receipt with Dr. Posadas on 08/19 00:42 (-04:00)
[2018-08-19 01:13] VITALS: BP 153/75; PULSE 85; RESP 18; TEMP 97
== END 2018-08-19 01:13 | disposition home or self-care (01) ==
LOC: EC 21:37
DX: K21.9 Gastro-esophageal reflux disease without esophagitis (principal); J98.11 Atelectasis; M41.24 Other idiopathic scoliosis, thoracic region; I77.810 Thoracic aortic ectasia; F41.0 Panic disorder [episodic paroxysmal anxiety]; Z79.899 Other long term (current) drug therapy; Z88.0 Allergy status to penicillin; Z88.1 Allergy status to other antibiotic agents; Z91.048 Other nonmedicinal substance allergy status; Z91.013 Allergy to seafood; Z88.6 Allergy status to analgesic agent; Z88.2 Allergy status to sulfonamides; Z86.73 Personal history of transient ischemic attack (TIA), and cerebral infarction without residual deficits
CPT/HCPCS: 36415; 93005; 85379; 80053; 82550; 82553; 84484; 85025; 85610; 85730; 71046; 71275; 99285; 96374; 96375 ×2; J1200; J2930; Q9967

== ENCOUNTER → 2020-07-24 | Outpatient (CLI) | payer OTHER ==
--- NOTE | 2020-07-24 17:19 | US ---
EXAMINATION TYPE: US duplex aorta DATE OF EXAM: 07/24/2020 COMPARISON: CT CLINICAL HISTORY: I71.2 Ascending aortic aneurysm. Abnormal CT EXAM MEASUREMENTS: Abdominal Aorta: Proximal: 1.9 x 2.1 cm Mid: 1.4 x 1.5 cm Distal: 1.4 x 1.3 cm Bifurcation: ARIELLA: 1.0 x 0.9 cm ALBERTO: 0.9 x 1.0 cm No evidence of AAA on ultrasound, pt had abnormal CT of thoracic aorta which ultrasound cannot visu glen IMPRESSION: 1. Normal abdomen aorta ultrasound
== END ==
LOC: RADUSWWP 10:55
PROVIDERS: ATTEND Family Medicine
DX: I71.2 Thoracic aortic aneurysm, without rupture (principal)
CPT/HCPCS: 93979

== ENCOUNTER 2022-10-12 19:59 | Emergency (ER) | payer BC, OTHER ==
[2022-10-12 20:07] VITALS: TEMP 98.3
--- NOTE | 2022-10-12 22:14 | XR ---
EXAMINATION TYPE: XR chest 2V DATE OF EXAM: 10/12/2022 9:52 PM COMPARISON: Chest x-ray 08/18/2018 TECHNIQUE: XR chest 2V . CLINICAL INDICATION:Female, 47 years old with history of difficulty breathing; FINDINGS: Lungs/Pleura: There is no evidence of pleural effusion, focal consolidation, or pneumothorax. Pulmonary vascularity: Unremarkable. Heart/mediastinum: Cardiomediastinal silhouette is unremarkable. Musculoskeletal: Scoliotic curvature of the thoracic spine with associated degenerative changes. IMPRESSION: No acute cardiopulmonary disease/process.
[2022-10-12 22:19] LABS: Basophils % (A) 0 %; Eosinophils % (A) 1 %; HCT 38.4 % (34.0-46.0); Hypochromasia Slight; Lymphocytes # (A) 2.1 k/uL (1.0-4.8); Lymphocytes % (A) 31 %; MCH 26.5 pg (25.0-35.0); MCHC 31.4 g/dL (31.0-37.0); MCV 84.6 fL (80.0-100.0); Mean Platelet Volume 7.6; Monocytes # (A) 0.3 k/uL (0-1.0); Monocytes % (A) 5 %; Neutrophils # (A) 4.1 k/uL (1.3-7.7); Neutrophils % (A) 61 %; Platelet Count 335 k/uL (150-450); RBC 4.54 m/uL (3.80-5.40); RDW 14.6 % (11.5-15.5); WBC 6.6 k/uL (3.8-10.6)
[2022-10-12] MEDS ORDERED: ALPRAZolam 0.25 MG TAB PO STA (22:27)
[2022-10-12 22:29] VITALS: BP 108/84
[2022-10-12 22:34] LABS: Prothrombin Time 10.5 sec (9.0-12.0)
[2022-10-12 22:36] LABS: ALT 16 U/L (4-34); AST 22 U/L (14-36); African American GFR (CKD) >90 (>60 ml/min/1.73 sqM); Albumin 4.4 g/dL (3.5-5.0); Alkaline Phosphatase 66 U/L (38-126); Anion Gap 9 mmol/L; Blood Urea Nitrogen 6 mg/dL (7-17); Calcium 9.3 mg/dL (8.4-10.2); Carbon Dioxide 24 mmol/L (22-30); Chloride 107 mmol/L (98-107); Glucose 96 mg/dL (74-99); Non-African American GFR(CKD) >90 (>60 ml/min/1.73 sqM); Partial Thromboplastin Time 19.4 sec (22.0-30.0); Potassium 3.7 mmol/L (3.5-5.1); Sodium 140 mmol/L (137-145); Total Bilirubin 0.4 mg/dL (0.2-1.3); Total Protein 7.3 g/dL (6.3-8.2)
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
[2022-10-12] MEDS ORDERED: SODIUM CHLORIDE 0.9% 500 ML 500 ML IV ONE (23:06)
--- NOTE | 2022-10-12 23:53 | CT ---
EXAM: CT Angiography Chest With Intravenous Contrast CLINICAL HISTORY: ITS.REASON CT Reason: short of breath TECHNIQUE: Axial computed tomographic angiography images of the chest with intravenous contrast. CTDI is 13.3 mGy and DLP is 301.6 mGy-cm. This CT exam was performed using one or more of the following dose reduction techniques: automated exposure control, adjustment of the mA and/or kV according to patient size, and/or use of iterative reconstruction technique. MIP reconstructed images were created and reviewed. COMPARISON: No relevant prior studies available. FINDINGS: Pulmonary arteries: Unremarkable. No pulmonary embolism. Aorta: No acute findings. No thoracic aortic aneurysm. Lungs: Unremarkable. No mass. No consolidation. Pleural space: Unremarkable. No significant effusion. No pneumothorax. Heart: Unremarkable. No cardiomegaly. No significant pericardial effusion. No evidence of RV dysfunction. Bones/joints: Old, healed posterior left-sided rib fractures. No dislocation. Soft tissues: Unremarkable. Lymph nodes: Unremarkable. No enlarged lymph nodes. IMPRESSION: No acute findings in the visualized arteries of the chest.
[2022-10-13] VITALS: PULSE 82; RESP 9
[2022-10-13] MEDS ORDERED: dexAMETHasone 2 MG TAB PO STA (00:15)
== END 2022-10-13 00:30 | disposition home or self-care (01) ==
LOC: EC 19:59
DX: R06.89 Other abnormalities of breathing (principal); J45.909 Unspecified asthma, uncomplicated; F41.9 Anxiety disorder, unspecified; Z79.899 Other long term (current) drug therapy; Z88.0 Allergy status to penicillin; Z88.1 Allergy status to other antibiotic agents; Z88.2 Allergy status to sulfonamides; Z88.6 Allergy status to analgesic agent; Z91.013 Allergy to seafood; Z91.048 Other nonmedicinal substance allergy status; Z86.73 Personal history of transient ischemic attack (TIA), and cerebral infarction without residual deficits
CPT/HCPCS: 36415; 93005; 80053; 83605; 84484; 85025; 85610; 85730; 71046; 71275; 99285; J8540; Q9967

== ENCOUNTER 2023-01-16 13:12 | Emergency (ER) | payer BC ==
[2023-01-16 13:23] VITALS: RESP 18; TEMP 98.1
[2023-01-16] MEDS ORDERED: SODIUM CHLORIDE 0.9% 1,000 ML IV ONE (13:40)
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
[2023-01-16 14:37] LABS: ALT 18 U/L (4-34); AST 39 U/L (14-36); African American GFR (CKD) >90 (>60 ml/min/1.73 sqM); Albumin 4.1 g/dL (3.5-5.0); Alkaline Phosphatase 61 U/L (38-126); Anion Gap 8 mmol/L; Blood Urea Nitrogen 7 mg/dL (7-17); Calcium 9.2 mg/dL (8.4-10.2); Carbon Dioxide 20 mmol/L (22-30); Chloride 107 mmol/L (98-107); Glucose 82 mg/dL (74-99); Non-African American GFR(CKD) >90 (>60 ml/min/1.73 sqM); Potassium 4.6 mmol/L (3.5-5.1); Sodium 135 mmol/L (137-145); Total Bilirubin 0.7 mg/dL (0.2-1.3); Total Protein 7.5 g/dL (6.3-8.2)
[2023-01-16 14:47] LABS: Anisocytosis Slight; Basophils % (A) 0 %; Eosinophils % (A) 1 %; HGB 12.5 gm/dL (11.4-16.0); Hypochromasia Moderate; Lymphocytes % (A) 38 %; MCH 26.9 pg (25.0-35.0); MCHC 31.2 g/dL (31.0-37.0); MCV 86.2 fL (80.0-100.0); Mean Platelet Volume 10.9; Monocytes # (A) 0.3 k/uL (0-1.0); Monocytes % (A) 6 %; Neutrophils # (A) 2.8 k/uL (1.3-7.7); Neutrophils % (A) 53 %; Platelet Count 182 k/uL (150-450); RBC 4.64 m/uL (3.80-5.40); RDW 16.3 % (11.5-15.5); WBC 5.2 k/uL (3.8-10.6)
[2023-01-16] MEDS ORDERED: FAMOTIDINE 20 MG/2 ML VIAL IV STA (14:47)
[2023-01-16] MEDS ORDERED: diphenhydrAMINE 50 MG/ML 1 ML VIAL IVP STA (14:47)
[2023-01-16] MEDS ORDERED: methylPREDNISolone SOD SUCCI 125 MG/2 ML VIAL IV STA (14:47)
--- NOTE | 2023-01-16 16:23 | CT ---
EXAMINATION TYPE: CT brain wo con DATE OF EXAM: 01/16/2023 COMPARISON: None HISTORY: 47-year-old female, Migraine, hx of TIA. TECHNIQUE: Examination was done in axial plane without intravenous contrast. Coronal and sagittal r econstructions performed. CT DLP: 1171.4 mGycm Automated exposure control for dose reduction was used. FINDINGS: There is no evidence of acute intracranial hemorrhage, acute ischemic changes, mass, mass-effect, or extra-axial fluid collection. There is no effacement of cerebral sulci or basal subarachnoid cister ns. There is no hydrocephalus. There is no midline shift. Rodriguez-white matter distinction is preserv ed. Old lacunar infarct right caudate head and right basal ganglia. Leftward nasal septal deviation. Paranasal sinuses and mastoid air cells well pneumatized. Orbits and globes are intact. IMPRESSION: No acute intracranial abnormality seen. Old lacunar infarcts right basal ganglia and right caudate he ad.
--- NOTE | 2023-01-16 17:17 | US ---
EXAMINATION TYPE: US venous doppler duplex LE LT DATE OF EXAM: 01/16/2023 5:01 PM COMPARISON: NONE CLINICAL INDICATION: Female, 47 years old with history of left calf pain; Left leg pain and edema lef t lower leg SIDE PERFORMED: left TECHNIQUE: The lower extremity deep venous system is examined utilizing real time linear array sonog carlos with graded compression, doppler sonography and color-flow sonography. VESSELS IMAGED: Common Femoral Vein Deep Femoral Vein Greater Saphenous Vein * Femoral Vein Popliteal Vein Small Saphenous Vein * Proximal Calf Veins (* superficial vessels) Left Leg: no evidence of DVT IMPRESSION: 1. Left lower extremity ultrasound negative for deep venous thrombosis.
[2023-01-16 18:48] VITALS: BP 116/82; PULSE 77
== END 2023-01-16 18:45 | disposition home or self-care (01) ==
LOC: SUPCPDRO 13:12 → EC 13:12
DX: G43.109 Migraine with aura, not intractable, without status migrainosus (principal); F41.9 Anxiety disorder, unspecified; M79.605 Pain in left leg; Z79.899 Other long term (current) drug therapy; Z88.0 Allergy status to penicillin; Z88.1 Allergy status to other antibiotic agents; Z88.2 Allergy status to sulfonamides; Z88.6 Allergy status to analgesic agent; Z91.09 Other allergy status, other than to drugs and biological substances; Z91.013 Allergy to seafood
CPT/HCPCS: 36415; 70450; 80053; 85025; 93005; 96360; 99284

== ENCOUNTER 2023-04-18 20:05 | Emergency (ER) | payer BC ==
[2023-04-18 20:32] VITALS: TEMP 98
[2023-04-18 21:52] LABS: Appearance,Urine Clear (Clear); Bilirubin,Urine Negative (Negative); Blood,Urine Negative (Negative); Color,Urine Light Yellow; Glucose,Urine (UA) Negative (Negative); Ketones,Urine Negative (Negative); Leukocyte Esterase,Urine Negative (Negative); Nitrite,Urine Negative (Negative); PH, Urine 7.5 (5.0-8.0); Protein,Urine Negative (Negative); Specific Gravity,Urine 1.005 (1.001-1.035); Urobilinogen,Urine <2.0 mg/dL (<2.0)
[2023-04-18] MEDS ORDERED: methylPREDNISolone SOD SUCCI 125 MG/2 ML VIAL IM ONE (22:06)
[2023-04-18] MEDS ORDERED: dexAMETHasone 2 MG TAB PO STA (22:36)
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
[2023-04-19 01:40] VITALS: BP 109/71; PULSE 69; RESP 16
== END 2023-04-19 00:19 | disposition home or self-care (01) ==
LOC: EC 20:05
DX: T78.40XA Allergy, unspecified, initial encounter (principal); J45.909 Unspecified asthma, uncomplicated; F41.9 Anxiety disorder, unspecified; Z79.899 Other long term (current) drug therapy; Z88.0 Allergy status to penicillin; Z88.1 Allergy status to other antibiotic agents; Z91.041 Radiographic dye allergy status; Z88.6 Allergy status to analgesic agent; Z88.2 Allergy status to sulfonamides; Z91.013 Allergy to seafood; Z88.8 Allergy status to other drugs, medicaments and biological substances
CPT/HCPCS: 93005; 81003; 99283; J8540

== ENCOUNTER → 2023-06-26 | Outpatient (CLI) | payer BC ==
--- NOTE | 2023-06-29 19:44 | MM ---
Reason for Exam: Screening (asymptomatic). Last mammogram was performed 18 year(s) and 8 month(s) ago. Patient History: Menarche at age 18. First Full-Term at age 23. Risk Values: Maday 5 year model risk: 0.7%. NCI Lifetime model risk: 7.8%. Prior Study Comparison: No prior studies available for comparison. Tissue Density: The breast tissue is heterogeneously dense. This may lower the sensitivity of mammography. Findings: Analyzed By CAD. On the left breast, posterior outer focal asymmetry for which further evaluation is recommended. Also on the left, medial asymmetric density anterior to middle depth should also be further evaluated. No suspicious microcalcification or other discrete abnormality is seen. Overall Assessment: Incomplete: need additional imaging evaluation, BI-RAD 0 Management: Special View Mammogram of the left breast. Diagnostic Breast Ultrasound of the left breast. Additional spot 3-D CC and spot 3-D MLO views for the posterior outer focal asymmetry. Additional views to include 3-D CC rolled and 3-D lateral views for the medial asymmetric density. Subsequent left breast ultrasound if any persisting abnormality.. [facility] will attempt to contact patient to return for supplemental views and ultrasound if indicated. Electronically signed and approved by: Jay Armstrong M.D. Radiologist
== END | disposition home or self-care (01) ==
LOC: RADMAMWWP 13:11
PROVIDERS: ATTEND Obstetrics & Gynecology
DX: Z12.31 Encounter for screening mammogram for malignant neoplasm of breast (principal)
CPT/HCPCS: 77063; 77067

== ENCOUNTER → 2023-07-06 | Outpatient (CLI) | payer BC ==
--- NOTE | 2023-07-06 11:32 | MM ---
Reason for Exam: Additional evaluation requested from abnormal screening. Last screening mammogram was performed less than 1 month ago. Patient History: Menarche at age 18. First Full-Term at age 23. Risk Values: Maday 5 year model risk: 0.7%. NCI Lifetime model risk: 7.8%. Prior Study Comparison: 10/30/2004 Bilateral Diagnostic Mammogram, [facility]. 06/26/2023 Bilateral MG 3D screening mammo w/cad, [facility]. Tissue Density: Left: The breast tissue is heterogeneously dense. This may lower the sensitivity of mammography. Findings: Analyzed By CAD. There is a persistent nodular density at the o'clock posterior position left breast best visualized craniocaudal projection. This measures 0.6 cm in size with partially obscured margins located 8 cm from the nipple. A seconds focal asymmetry is present in the inner aspect anterior mid left breast approximately 8 9:00 position. This measures 1.9 x 0.6 cm 4 cm from the nipple. Overall Assessment: Incomplete: need additional imaging evaluation, BI-RAD 0 Management: Diagnostic Breast Ultrasound of the left breast. A negative mammogram report should not preclude additional follow up of suspicious palpable abnormalities. Patient should continue monthly self breast exam. A clinical breast exam by your physician is recommended on an annual basis and results should be correlated with mammographic findings. Electronically signed and approved by: Tenzin Huff D.O. Radiologis
--- NOTE | 2023-07-06 12:33 | USB ---
Reason for Exam: Additional evaluation requested from abnormal screening. Patient History: Menarche at age 18. First Full-Term at age 23. Risk Values: Maday 5 year model risk: 0.7%. NCI Lifetime model risk: 7.8%. Technique: Method: Targeted. Prior Study Comparison: 10/30/2004 Bilateral Diagnostic Mammogram, [facility]. 06/26/2023 Bilateral MG 3D screening mammo w/cad, [facility]. Findings: The upper outer quadrant of the left breast, the medial section of the breast of the left breast, the axilla of the left breast and the retroareolar of the left breast were scanned. 1. There is a simple appearing cyst 3:00 position 8 cm 0.9 x 0.6 x 0.5 cm. This appears to correlate with the mammographic finding. 2. There is a complex cluster of cysts at the 9:00 position 4 cm from the nipple. This may correlate with the mammographic finding. Area measures approximately 1.3 x 0.5 cm in size. 3. There is a curvilinear hypodense area may be a somewhat complex cyst measuring 0.9 x 0.6 x 0.6 cm 10:00 position 2 cm from the nipple. Mammographic correlation is identified. This may be a mildly complex cyst. 4. There is a complex cyst with internal echoes measuring 0.9 x 0.6 x 0.3 cm in the retroareolar region. Overall Assessment: Probably benign, BI-RAD 3 Management: Diagnostic Mammogram of the left breast in 6 months. Diagnostic Breast Ultrasound of the left breast in 6 months. A clinical breast exam by your physician is recommended on an annual basis and results should be correlated with mammographic findings. This exam should not preclude additional follow-up of suspicious palpable abnormalities. Results were given to the patient verbally at the time of exam. Electronically signed and approved by: Tenzin Huff D.O. Radiologis
== END | disposition home or self-care (01) ==
LOC: RADMAMWWP 10:25
PROVIDERS: ATTEND Obstetrics & Gynecology
DX: N60.12 Diffuse cystic mastopathy of left breast (principal); R92.332 Mammographic heterogeneous density, left breast
CPT/HCPCS: 77061; 77065

== ENCOUNTER 2023-07-09 16:03 | Emergency (ER) | payer BC ==
[2023-07-09 16:33] VITALS: TEMP 98.3
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
[2023-07-09 16:54] LABS: Basophils % (A) 0 %; Eosinophils % (A) 0 %; HCT 41.3 % (34.0-46.0); HGB 13.8 gm/dL (11.4-16.0); Lymphocytes # (A) 2.4 k/uL (1.0-4.8); Lymphocytes % (A) 19 %; MCH 30.2 pg (25.0-35.0); MCHC 33.3 g/dL (31.0-37.0); MCV 90.6 fL (80.0-100.0); Mean Platelet Volume 7.7; Monocytes % (A) 8 %; Neutrophils # (A) 8.7 k/uL (1.3-7.7); Neutrophils % (A) 71 %; Platelet Count 260 k/uL (150-450); RBC 4.55 m/uL (3.80-5.40); RDW 12.7 % (11.5-15.5); WBC 12.4 k/uL (3.8-10.6)
[2023-07-09 17:03] LABS: Appearance,Urine Clear (Clear); Bilirubin,Urine Negative (Negative); Blood,Urine Negative (Negative); Color,Urine Colorless; Glucose,Urine (UA) Trace (Negative); Ketones,Urine Negative (Negative); Leukocyte Esterase,Urine Negative (Negative); Nitrite,Urine Negative (Negative); Protein,Urine Negative (Negative); Specific Gravity,Urine 1.004 (1.001-1.035); Urobilinogen,Urine <2.0 mg/dL (<2.0)
[2023-07-09 17:15] LABS: ALT 12 U/L (4-34); AST 20 U/L (14-36); African American GFR (CKD) >90 (>60 ml/min/1.73 sqM); Albumin 4.5 g/dL (3.5-5.0); Alkaline Phosphatase 70 U/L (38-126); Amylase 73 U/L (30-110); Anion Gap 8 mmol/L; Blood Urea Nitrogen 5 mg/dL (7-17); Calcium 10.9 mg/dL (8.4-10.2); Carbon Dioxide 26 mmol/L (22-30); Chloride 106 mmol/L (98-107); Glucose 75 mg/dL (74-99); Lipase 67 U/L (23-300); Non-African American GFR(CKD) >90 (>60 ml/min/1.73 sqM); Potassium 4.6 mmol/L (3.5-5.1); Sodium 140 mmol/L (137-145); Total Protein 7.8 g/dL (6.3-8.2)
--- NOTE | 2023-07-09 17:56 | CT ---
EXAMINATION TYPE: CT abdomen pelvis wo con DATE OF EXAM: 07/09/2023 COMPARISON: 02/04/2017 INDICATION: RLQ pain, denies DLP: 396.1 mGycm, Automated exposure control for dose reduction was used. CONTRAST: 0 mL of Isovue 300. Study performed without Oral Contrast TECHNIQUE: Axial images were obtained from above the diaphragm to the pubic rami in the axial plane a t 5 mm thick sections. Reconstructed images are reviewed on the computer in the coronal plane. FINDINGS: Limited CT sections are obtained the lung bases. The lung bases are clear. CT ABDOMEN: Liver: Normal Spleen: Normal Pancreas: Normal Adrenal glands: The adrenal glands are normal. Gallbladder: Normal Kidneys: No masses are evident. No hydronephrosis is present. No cysts are present. There is a pun ctate nonobstructing renal stone inferior pole right kidney. Aorta: Vascular calcification is within the aorta. Inferior vena cava: Normal. CT PELVIS: Inflammatory changes are in the right right midabdomen, image 42 series 201. This is above the normal appearing appendix. Correlate for acute diverticulitis of the proximal transverse colon. No abscess formation is evident. No free air is evident. The study is without oral contrast limits bowel evaluat ion. Appendix: Normal as visualized. Urinary bladder: Normal. Genitourinary structures: Uterus is in the left hemipelvis. Adnexa are unremarkable. Minimal cul-de-s ac fluid may be present. Osseous structures: No suspicious lytic or sclerotic lesions. IMPRESSION: 1. Clinical correlation recommended for acute diverticulitis proximal transverse colon. 2. The appendix appears normal. 3. Nonobstructing punctate renal stone inferior pole right kidney
[2023-07-09 19:28] VITALS: BP 120/81; PULSE 90; RESP 18
[2023-07-09] MEDS: AMOXIC-POT CLAV 875-125MG 1 EACH TAB PO STA (19:42)
[2023-07-09] MEDS: diphenhydrAMINE 25 MG CAP PO STA (20:52)
== END 2023-07-09 20:57 | disposition home or self-care (01) ==
LOC: EC 16:03
DX: K57.32 Diverticulitis of large intestine without perforation or abscess without bleeding (principal); J45.909 Unspecified asthma, uncomplicated; F41.9 Anxiety disorder, unspecified; Z79.899 Other long term (current) drug therapy; Z88.0 Allergy status to penicillin; Z88.8 Allergy status to other drugs, medicaments and biological substances; Z88.1 Allergy status to other antibiotic agents; Z88.2 Allergy status to sulfonamides; Z88.6 Allergy status to analgesic agent; Z91.041 Radiographic dye allergy status; Z91.013 Allergy to seafood
CPT/HCPCS: 36415; 74176; 80053; 81003; 81025; 82150; 83690; 85025; 99284

== ENCOUNTER → 2024-10-20 | Outpatient (CLI) | payer BC ==
--- NOTE | 2024-10-20 11:03 | MM ---
Reason for Exam: Screening (asymptomatic). Last mammogram was performed 1 year(s) and 4 month(s) ago. Patient History: Menarche at age 18. First Full-Term at age 23. Risk Values: Maday 5 year model risk: 0.7%. NCI Lifetime model risk: 7.6%. Prior Study Comparison: 10/30/2004 Bilateral Diagnostic Mammogram, [facility]. 06/26/2023 Bilateral MG 3D screening mammo w/cad, [facility]. 07/06/2023 Left MG 3D work up w/cad LT, [facility]. Tissue Density: The breasts are heterogeneously dense, which may obscure small masses. Findings: Analyzed By CAD. There is no suspicious group of microcalcifications or new suspicious mass in either breast. Previously noted nodule in the upper left breast is stable in size and appearance. Overall Assessment: Benign, BI-RAD 2 Management: Screening Mammogram of both breasts in 1 year. . Patient should continue monthly self-breast exams. A clinical breast exam by your physician is recommended on an annual basis. This exam should not preclude additional follow-up of suspicious palpable abnormalities. Note on Maday scores and lifetime risk: 1. A Maday score greater than 3% is considered moderate risk. If this is the case, consider specialist referral to assess eligibility for a risk reducing agent. 2. If overall lifetime risk for the development of breast cancer is 20% or higher, the patient may qualify for future screening with alternating mammogram and breast MRI. [facility], , 10/20/2024 11:00 AM. Electronically signed and approved by: Fermin Stout M.D. Radiologis
== END | disposition home or self-care (01) ==
LOC: RADMAMWWP 10:34
PROVIDERS: ATTEND Obstetrics & Gynecology
DX: Z12.31 Encounter for screening mammogram for malignant neoplasm of breast (principal); R92.333 Mammographic heterogeneous density, bilateral breasts
CPT/HCPCS: 77063; 77067